=== PATIENT | male | born 1955 | race Caucasian/White ===

== ENCOUNTER 2016-03-18 13:29 | Emergency (ER) | payer OTHER ==
[~2016-03-18] VITALS: Ht 170.2 cm; Wt 108.9 kg
[~2016-03-18 13:29] MED LIST: FIORICET 300 MG1 CAP PO
--- NOTE | 2016-03-18 13:42 | ED GI/GU/ABDOMINAL COMPLAINT ---
History of Present Illness General Chief Complaint: Abdominal Pain/Flank Pain Stated Complaint: LLQ PAIN SINCE YESTDA Source: patient Exam Limitations: no limitations Vital Signs & Intake/Output Vital Signs & Intake/Output Vital Signs Date Time Temp Pulse Resp B/P Pulse O2 O2 Flow FiO2 Ox Delivery Rate 03/18 1633 97.7 72 18 155/68 98 Room Air 03/18 1333 96.8 60 20 161/78 98 Room Air Allergies Coded Allergies: NO KNOWN ALLERGIES (06/04/11) Reconcile Medications BUTALB/ACETAMINOPHEN/CAFFEINE (Fioricet 50-300-40 MG Capsule) 50 MG-300 MG-40 MG CAPSULE 1 TAB PO Q6-8HR PRN HEADACHES Triage Note: 60 YO MALE BIBA FROM HOME. PT C/O LLQ PAIN RADIATING TO LOW BACK. STATES A COUPLE DAYD AGO HE HAD FEVER AND CHILLS. STATES TODAY THE PAIN STARTED. DENIES CHEST PAIN. LAST BOWEL MOVEMENT WAS YESTERDAY AND NORMAL. DENIES URIANRY S/S. C/O NAUSEA. Triage Nurses Notes Reviewed? yes HPI: 60-year-old male with left lower quadrant abdominal pain on and off for the last few days, states it is severe, rating to the lower back, has nausea without vomiting. He has history of reflux, recently had a colonoscopy and endoscopy which she states was normal. He has no urinary symptoms. His pain is getting worse today, it is severe, he has not any treatment, he took an ambulance here for further evaluation. He has not eaten anything today and has a poor appetite. (THOMAS BRAGA) Past History Travel History Traveled to [place] past 21 day No Medical History Any Pertinent Medical History? 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 No (THOMAS BRAGA) Review of Systems Review of Systems Constitutional: Reports: see HPI. EENTM: Reports: no symptoms. Respiratory: Reports: no symptoms. Cardiovascular: Reports: no symptoms. GI: Reports: see HPI. Genitourinary: Reports: no symptoms. Musculoskeletal: Reports: no symptoms. Skin: Reports: no symptoms. Neurological/Psychological: Reports: no symptoms. Hematologic/Endocrine: Reports: no symptoms. Immunologic/Allergic: Reports: no symptoms. All Other Systems: Reviewed and Negative (THOMAS BRAGA) Physical Exam Physical Exam General Appearance: well developed/nourished Gastrointestinal: normal bowel sounds, soft, TENDERNESS TO THE LEFT LOWER QUADRANT AND LEFT FLANK oBESE nONDISTENDED Comments: Well-developed well-nourished , patient appears uncomfortable, mildly diaphoretic HEENT: Atraumatic, extraocular motion intact Neck: Supple, no lymphadenopathy Back: Nontender Respiratory: No respiratory distress clear to auscultation bilateral. Heart: Regular rhythm murmur Extremities: No edema, full range of motion Neuro: Alert and oriented x3 Psych: Mood affect normal, normal memory normal judgment. Skin: Warm no rash on exposed skin Core Measures ACS in differential dx? No Severe Sepsis Present: No Septic Shock Present: No (THOMAS BRAGA) Progress Differential Diagnosis: AAA, AMI, appendicitis, biliary colic, bowel obstruction , colon cancer, cholecystitis, diverticulitis, epididymitis, esophageal varices, gastritis, hepatitis, hernia, hemorrhoids, ischemic bowel, inflamm bowel dis, [place] tear, orchitis, pancreatitis, prostatitis, peptic ulcer, PUD/GERD, perforated viscous, pyelonephritis, SBO, STD, testicular torsion, ureterolithiasis, urinary retention, urethritis, UTI/pyelo Plan of Care: Orders Procedure Date/time Status URINALYSIS 03/18 1550 Complete Saline Lock 03/18 1339 Active COMPREHENSIVE METABOLIC PANEL 03/18 1339 Complete CBC WITHOUT DIFFERENTIAL 03/18 1339 Complete Laboratory Tests 03/18/16 1550: Urine Color YEL, Urine Clarity CLEAR, Urine pH 6.0, Ur Specific [place] 1.025, Urine Protein NEG, Urine Ketones 15 H, Urine Nitrite NEG, Urine Bilirubin NEG, Urine Urobilinogen 0.2, Ur Leukocyte Esterase NEG, Ur Microscopic EXAM NOT REQUIRED, Urine Hemoglobin NEG, Urine Glucose NEG 03/18/16 1342: Anion Gap 14, Estimated GFR > 60, BUN/Creatinine Ratio 12.7, Glucose 126 H, Calcium 9.6, Total Bilirubin 1.0, AST 19, ALT 36, Alkaline Phosphatase 56, Total Protein 6.9, Albumin 3.9, Globulin 3.0, Albumin/Globulin Ratio 1.3, CBC w Diff NO MAN DIFF REQ, RBC 4.65 L, MCV 85.5, MCH 28.9, RDW 13.5, MPV 7.9, Gran % 75.6 H, Lymphocytes % 18.1 L, Monocytes % 4.9, Eosinophils % 1.0, Basophils % 0.4, Absolute Granulocytes 7.3 H, Absolute Lymphocytes 1.8, Absolute Monocytes 0.5, Absolute Eosinophils 0.1, Absolute Basophils 0, PUBS MCHC 33.8 Diagnostic Imaging: Viewed by Me: CT Scan. Discussed w/RAD: CT Scan. Radiology Impression: PATIENT: JOHN EASTMAN PRESENT AGE: 60 PATIENT ACCOUNT NO: [id number] : 59 LOCATION: [facility] ORDERING PHYSICIAN: THOMAS JAIME SERVICE DATE: 03/18/16 EXAM TYPE: CAT - CT ABD & PELVIS W IV CONTRAST EXAMINATION: CT ABDOMEN AND PELVIS WITH CONTRAST CLINICAL INFORMATION: Left lower quadrant abdominal pain. COMPARISON: None. TECHNIQUE: Multidetector volumetric imaging was performed of the abdomen and pelvis before and after the IV administration of 94 mL of Optiray 320 intravenous contrast. Sagittal and coronal reformatted images were obtained on the technologist's workstation. DLP: 1359 mGy-cm. FINDINGS: LUNG BASES: Minimal atelectasis within dependent aspect of the lower lobes. Mild cardiomegaly and mild atherosclerotic calcification of coronary arteries. No pericardial or pleural effusion. LIVER, GALLBLADDER, AND BILIARY TREE: Liver has normal size and contour. There are a few hepatic cysts, largest measuring up to 1.4 cm. No suspicious hepatic lesion or intrahepatic bile duct dilatation. Gallbladder is unremarkable. PANCREAS: Unremarkable. SPLEEN: Unremarkable. ADRENAL GLANDS: Unremarkable. KIDNEYS AND URETERS: The kidneys are normal in size, shape, and attenuation. No hydronephrosis, hydroureter, or calculi seen. No perinephric stranding. BLADDER: Unremarkable. GASTROINTESTINAL TRACT: Stomach is unremarkable. Bowel loops are normal in size. Appendix is normal. No evidence of inflammation or obstruction along the gastrointestinal tract. No ascites or pneumoperitoneum. ABDOMINAL WALL: Unremarkable. LYMPH NODES: No pathologic sized lymph nodes within the abdomen or pelvis. VASCULAR: Mild atherosclerotic calcification of the abdominal aorta and iliac arteries without aneurysm. Inferior vena cava is normal. PELVIC VISCERA: Prostate gland and seminal vesicles are unremarkable. No pelvic free fluid. OSSEOUS STRUCTURES: Multilevel disc degenerative changes of the lumbar spine. There is minimal retrolisthesis at L2-L3 and L3-L4. Otherwise, lumbar alignment is maintained. Moderate osteoarthrosis of the right hip and mild osteoarthrosis of the left hip. IMPRESSION: No acute imaging findings within the abdomen or pelvis. No specific source of abdominal pain is identified. DICTATED BY: SOTO COLON MD DATE/ TIME DICTATED:03/18/161525 ASPHALT BLENDER:NITZA Initial ED EKG: none Comments: The patient treated with 4 mg IV morphine, 4 mg Zofran and IV fluids. We will obtain labs and CT scan. Patient was reevaluated still with pain and given 1 mg Dilaudid IV. Laboratory data is unremarkable negative updated him on this. CT scan is unremarkable, urinalysis is unremarkable come discussed with patient possibility of muscle strain, back strain with radiation, possibility of a kidney stone that was missed on the CT scan due to obtaining IV contrast scan. He is feeling better on reevaluation he has a nontender abdomen. I advised him to return with any worsening symptoms or concerns, he is stable for discharge home, bland diet recommended and advance as tolerated. (THOMAS BRAGA) Departure Departure Disposition: HOME OR SELF CARE Condition: Stable Clinical Impression Primary Impression: Abdominal pain Qualifiers: Abdominal location: left lower quadrant Qualified Code: R10.32 - Left lower quadrant pain Referrals: LSIET MCALLISTER MD (PCP/Family) Referred to [facility] as new patient No Additional Instructions: Mckenzie diet today, advance as tolerated. Return to the ER with worsening abdominal pain nausea vomiting or fever, follow- up with your primary care doctor if pain continues over the next few days. Departure Forms: Customer Survey General Discharge Information (THOMAS BRAGA) PA/RACK LOADER Co-Sign Statement Statement: ED Attending supervision documentation- [] I saw and evaluated the patient. I have also reviewed all the pertinent lab results and diagnostic results. I agree with the findings and the plan of care as documented in the PA's/RACK LOADER's documentation. [X] I have reviewed the ED Record and agree with the PA's/RACK LOADER's documentation. [] Additions or exceptions (if any) to the PAs/RACK LOADER's note and plan are summarized below: [] (ROSEY PANTOJA,YVES)
[2016-03-18 14:02] LABS: ABSOLUTE BASOPHIL COUNT 0 /CUMM (0.0-0.2); ABSOLUTE EOSINOPHIL COUNT 0.1 /CUMM (0.0-0.7); ABSOLUTE GRANULOCYTE CT 7.3 /CUMM (1.4-6.5); ABSOLUTE LYMPH COUNT 1.8 /CUMM (1.2-3.4); ABSOLUTE MONOCYTE COUNT 0.5 /CUMM (0.10-0.60); BASOPHIL % 0.4 % (0.0-2.0); GRANULOCYTE % 75.6 % (42.2-75.2); HEMATOCRIT 39.8 % (42-52); MEAN CORPUSCULAR HGB 28.9 PG (27.0-31.0); MEAN CORPUSCULAR HGB CONC 33.8 G/DL (33.0-37.0); MEAN CORPUSCULAR VOLUME 85.5 FL (80.0-94.0); MEAN PLATELET VOLUME 7.9 FL (7.4-10.4); PLATELET COUNT 246 /CUMM (130-400); RBC DISTRIBUTION WIDTH 13.5 % (11.5-14.5); RED BLOOD CELL CT 4.65 /CUMM (4.70-6.10); WHITE BLOOD CELL COUNT 9.7 /CUMM (4.8-10.8)
--- NOTE | 2016-03-18 15:36 | CT SCAN REPORT ---
EXAMINATION: CT ABDOMEN AND PELVIS WITH CONTRAST CLINICAL INFORMATION: Left lower quadrant abdominal pain. COMPARISON: None. TECHNIQUE: Multidetector volumetric imaging was performed of the abdomen and pelvis before and after the IV administration of 94 mL of Optiray 320 intravenous contrast. Sagittal and coronal reformatted images were obtained on the technologist's workstation. DLP: 1359 mGy-cm. FINDINGS: LUNG BASES: Minimal atelectasis within dependent aspect of the lower lobes. Mild cardiomegaly and mild atherosclerotic calcification of coronary arteries. No pericardial or pleural effusion. LIVER, GALLBLADDER, AND BILIARY TREE: Liver has normal size and contour. There are a few hepatic cysts, largest measuring up to 1.4 cm. No suspicious hepatic lesion or intrahepatic bile duct dilatation. Gallbladder is unremarkable. PANCREAS: Unremarkable. SPLEEN: Unremarkable. ADRENAL GLANDS: Unremarkable. KIDNEYS AND URETERS: The kidneys are normal in size, shape, and attenuation. No hydronephrosis, hydroureter, or calculi seen. No perinephric stranding. BLADDER: Unremarkable. GASTROINTESTINAL TRACT: Stomach is unremarkable. Bowel loops are normal in size. Appendix is normal. No evidence of inflammation or obstruction along the gastrointestinal tract. No ascites or pneumoperitoneum. ABDOMINAL WALL: Unremarkable. LYMPH NODES: No pathologic sized lymph nodes within the abdomen or pelvis. VASCULAR: Mild atherosclerotic calcification of the abdominal aorta and iliac arteries without aneurysm. Inferior vena cava is normal. PELVIC VISCERA: Prostate gland and seminal vesicles are unremarkable. No pelvic free fluid. OSSEOUS STRUCTURES: Multilevel disc degenerative changes of the lumbar spine. There is minimal retrolisthesis at L2-L3 and L3-L4. Otherwise, lumbar alignment is maintained. Moderate osteoarthrosis of the right hip and mild osteoarthrosis of the left hip. IMPRESSION: No acute imaging findings within the abdomen or pelvis. No specific source of abdominal pain is identified.
[2016-03-18 16:33] VITALS: BP 155/68
== END 2016-03-18 16:30 ==
LOC: ERH 13:29
PROVIDERS: Physician Assistant Surgical
DX: R10.32 Left lower quadrant pain (principal); R11.0 Nausea
CPT/HCPCS: 74177; 81003; 96374; 96375; J2405